=== PATIENT | male | born 1955 | race African-American/Black ===

== ENCOUNTER 2019-06-16 17:56 | Emergency (ER) | payer OTHER ==
[~2019-06-16] VITALS: Ht 188 cm; Wt 124.7 kg
--- NOTE | ~2019-06-16 | EKG ---
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
[~2019-06-16 17:56] MED LIST: ASA81BEC; CIPROFLOXACIN500 M1 PO; FLAGYL500 M1 PO; PERCOCET; VALIUM5 MG PO; ZOFRAN ODT4 MG PO
[2019-06-16] MEDS ORDERED: PANTOPRAZOLE SO40 M1 PO (18:05)
[2019-06-16 19:08] LABS: ABSOLUTE NEUTROPHILS 3.3 thou/uL (1.4-8.2); EOSINOPHILS 2.6 % (0.0-3.0); HEMATOCRIT 41.7 % (42.0-52.0); HEMOGLOBIN 13.5 gm/dL (14.0-18.0); LYMPHOCYTES 43.8 % (24.0-44.0); MCH 28.6 pg (26.0-34.0); MCHC 32.5 g/dL (28.0-37.0); MCV 87.8 fL (80.0-100.0); MONOCYTES 7.3 % (1.0-8.0); PLATELET COUNT 235 thou/uL (150-400); POLYS 45.3 % (36.0-66.0); RBC 4.74 mil/uL (4.50-6.00); RDW 14.9 % (10.5-14.5); WBC 7.3 thou/uL (4.0-11.0)
[2019-06-16 19:12] LABS: ANION GAP 8 mmol/L (7-16); BUN 9 mg/dL (7-18); CHLORIDE 103 mmol/L (98-107); CO2 30 mmol/L (21-32); CREATININE 0.8 mg/dL (0.7-1.3); GLUCOSE 91 mg/dL (74-106); POTASSIUM 3.9 mmol/L (3.5-5.1); SODIUM 141 mmol/L (136-145)
[2019-06-16 19:23] LABS: ALBUMIN 3.7 g/dL (3.4-5.0); SGOT 15 U/L (15-37); SGPT 23 U/L (30-65); TOTAL BILIRUBIN 0.4 mg/dL (<0.1-1.0); TOTAL PROTEIN 7.8 g/dL (6.4-8.2); TROPONIN-I <0.06 ng/mL (<0.06)
[2019-06-16] MEDS ORDERED: MOBIC7.5 MG PO (21:36)
[2019-06-16 21:53] VITALS: BP 126/89
== END 2019-06-16 21:54 | disposition home or self-care (01) ==
LOC: ER 17:56
PROVIDERS: Emergency Medicine
DX: M79.604 Pain in right leg (principal); M79.605 Pain in left leg; R53.1 Weakness; R60.0 Localized edema; E11.9 Type 2 diabetes mellitus without complications; Z85.46 Personal history of malignant neoplasm of prostate

== ENCOUNTER → 2019-10-09 | Outpatient (CLI) | payer OTHER ==
[~2019-10-09] VITALS: Ht 188 cm; Wt 127.2 kg
[~2019-10-09] MED LIST changes: -ASA81BEC; +ASPIR 8181 MG PO; +CARVEDILOL6.25 M1 PO; +COZAAR 50 MG TA50 M1 PO; +LIPITOR 40 MG T40 M1 PO; +MEDROLDOSEPACK PO; +MOBIC7.5 MG PO; +PROTONIX40 M1 PO; +ROXICODONE30 MG PO; +VITAMIN D
--- NOTE | ~2019-10-09 | HPC ---
[facility] [place] [address] PAIN MANAGEMENT CONSULTATION Name: AMALIA HACKETT Room #: REG LALO Arsalan#: [id number] Admission: 10/09/19 Attend Phys: Beau Avendaño MD Discharge: Date of : 59 Report #: [id number] THIS REPORT FOR: cc: Andrés Arredondo MD, John R. MD Morgan, Richard L. MD ~ CC: Sonya Avendaño DATE OF SERVICE: 10/09/2019 CHIEF COMPLAINT: Severe pain, right leg weakness. I am seeing the patient today at the request of Sonya Aguilar for possible epidural steroid injection. Although he has chronic neck pain and cervicalgia with radiculopathy, his primary complaint throughout his visit today was pain in his legs. It is difficult to get a clear history. He seems heavily medicated today and this is confirmed by his prescription drug monitoring program information. He is on high-dose oxycodone therapy. He complains that standing on hard surfaces or just walking causes a constant, burning, shooting pain, which he scores at a 10/10 in intensity. Pain drawing shows pain that radiates through his right leg all the way to the foot consistent with an L4 distribution. This also is consistent with his physical exam findings, see below. He has not had physical therapy. Only pain medication is the high-dose oxycodone. MEDICATIONS: Carvedilol, losartan, pantoprazole, atorvastatin, vitamin D, aspirin, and oxycodone 30 mg. He is prescribed 180 tablets per month from Dr[address] Arredondo. ALLERGIES: None. PAST MEDICAL HISTORY: Positive for hepatitis C, which has been treated and cured. History of prostate cancer, also treated in the distant past. He has an obvious cardiac history, although he did not discuss current symptoms with us today. He has in the past been on Brilinta, but repeatedly denied taking blood thinning medications. We noted it on Sonya Aguilar's note from 08/26/2019. Also noted was type 2 diabetes, which was not noted on his intake form today in our clinic. Impact pain score 66/70. He shows significant interference with almost all [facility] [address] [place] [address] PAIN MANAGEMENT CONSULTATION Name: AMALIA HACKETT Room #: REG [facility].#: [id number] Admission: 10/09/19 Attend Phys: Beau Avendaño MD Discharge: Date of : 59 Report #: [id number] daily activities with his current pain. PHYSICAL EXAMINATION: GENERAL: He is a soft spoken, very large gentleman, 6 feet 2 inches, 280 pounds, BMI of 36. VITAL SIGNS: Blood pressure 134/96, pulse is 81, respirations 20, O2 sat 98. He reports his pain intensity is 10/10. He is wearing a mask due to COVID restrictions. NECK: Range of motion is limited due to pain. He has radiating pain into his shoulders bilaterally, worse right than left. CHEST: Clear. CARDIAC: Rhythm is regular. MUSCULOSKELETAL: Reveals decreased range of motion and back extension and flexion. Tenderness across the lumbosacral segment, which is mild. In the seated and supine position, there is mild to moderate straight leg raising pain that follows an L4 distribution through the anterolateral portion of the right leg. Slight numbness. There is some weakness in leg extension and hip flexion on the right greater than the left. There is a very objective difference between the right knee jerk reflex and the left. Right knee jerk reflexes is trace, left is 2+. Ankle reflexes are trace bilaterally. MRI: None. IMPRESSION: His findings are consistent with a right L4 radiculopathy. An epidural injection may be of benefit. Preauthorization is required by his insurance. I have scheduled him back in the clinic at our earliest appointment, which will be Sunday for epidural steroid injection. I repeatedly reviewed with him the importance of being off of Plavix for injection. I am reluctant to prescribe any centrally acting medications as a supplement to his current medicine regimen. He appears overmedicated today, slow in answering and slurring of speech. I will call in a Renthackr Dosepak to see if that will provide some relief over the weekend prior to his injection. By: [id number] Beau Avendaño MD /nt
[2019-10-09 14:06] VITALS: BP 134/96
--- NOTE | 2019-10-09 14:31 | NUR ---
Pain Clinic Assessment: 1. History of Osteoarthritis: History of Rheumatoid Arthritis: 2. Height: 6 ft. 2 in. 188.0 cm. Weight: 280.4 lb. oz. 127.189 kg. Patient's BMI: 36.0 3. Vital Signs: BP: 134/96 Pulse: 81 Resp: 20 Temp: 02 Sat: 99 ECG Mon: 4. Pain Intensity: 8 5. Fall Risk: Dizziness: N Needs help standing or walking: N Fallen in the last 3 months: Y Fall risk comments: 6. Patient on Blood Thinner: None 7. History of Hypertension: Y 8. Opioid Therapy greater than 6 weeks: Y Opiate Contract Signed: 9. Risk Assessment Tool Provided: 10. Functional Assessment Tool: 11. Recreational Drug Use: Current within past 3 mos Drug Type: MARIJUANA Tobacco Use: Former Smoker Tobacco Type: Amount or Packs/day: How Many Years: Alcohol Use: No Frequency: Quant:
== END ==
LOC: PAIN 06:53
DX: R53.1 Weakness (principal); M79.604 Pain in right leg; B19.20 Unspecified viral hepatitis C without hepatic coma; Z79.899 Other long term (current) drug therapy; Z85.46 Personal history of malignant neoplasm of prostate

== ENCOUNTER → 2020-01-01 | Outpatient (CLI) | payer OTHER ==
[~2020-01-01] VITALS: Ht 188 cm; Wt 131.1 kg
--- NOTE | ~2020-01-01 | HPC ---
[facility] [place] [address] PAIN MANAGEMENT CONSULTATION Name: AMALIA HACKETT Room #: REG LALO Arsalan#: [id number] Admission: 01/01/20 Attend Phys: Beau Avendaño MD Discharge: Date of : 59 Report #: [id number] THIS REPORT FOR: cc: Andrés Arredondo MD, John R. MD Morgan,Beau Vincent MD ~ CC: Andrés Avendaño DATE OF SERVICE: 01/01/2020 Followup visit for chronic pain. The patient complains of severe low back pain radiating into both legs today. I saw the patient on 10/09/2019. At that time, he was heavily medicated. Please note that dictation. I placed him on a Medrol Dosepak and scheduled him to return, possibly for an epidural injection. He returned today 3 months after his initial visit. He is now off of Plavix. He complains of pain 6-8/10 that is in his low back, radiates into the lateral thigh bilaterally. It is worse in his left today, radiating down into the foot. He complains that his legs always feel heavy. He has difficulty with walking and standing. When he is sedentary, he is improved. We talked about the importance of remaining active. He continues on his medication but per report, is taking a lower dose. Prescription drug monitoring program does not indicate that he had a prescription filled on 12/03/2019 for 180, oxycodone 30 mg tablets. He says he has been on these medications for 10 years. He is able to tolerate them by his own report but as noted last visit and as well today, he seems forgetful and at times, a bit confused. PQRS: Negative for osteoarthritis. He is obese with a BMI of 37.1. Blood pressure is 148/91, heart rate 59, respirations 18, O2 sat 97, pain intensity 6/10. He denies falls. Denies blood thinner. Dr. Arredondo provides medication for hypertension. All medications were reviewed and reconciled and includes pantoprazole, carvedilol, losartan, atorvastatin, vitamin D, aspirin, and oxycodone 30 mg up to 6 times daily. He has not signed an opioid agreement with us and we do not prescribe for him. He has completed an opioid risk tool and his score is 0 on the subjective tool. Functional assessment score also scored by the patient is 34/70 suggesting moderate impact of pain on daily activities. He continues to smoke marijuana and tobacco. Counseled about both, particularly in light of his use of centrally acting medication and a strong opioid such as oxycodone 30. He denies use of alcohol. [address] [address] PAIN MANAGEMENT CONSULTATION Name: AMALIA HACKETT FLORENCIO Room #: REG CL Arsalan#: [id number] Admission: 01/01/20 Attend Phys: Beau Avendaño MD Discharge: Date of : 59 Report #: [id number] IMPRESSION: Low back pain with radicular symptoms, worse on the left. RECOMMENDATION: We will try an epidural injection today. My hope is that we provide enough relief that he can taper some of his opioid medications. We discussed how this might occur. He is anxious to proceed. DESCRIPTION OF PROCEDURE: The patient was taken to fluoroscopic suite, placed prone, skin prepped with ChloraPrep. Skin anesthetized over the L4-L5 interspace. Because of his size of 4.5-inch, a 20-gauge Tuohy epidural needle was utilized. It was advanced in the epidural space with loss of resistance technique. On the first attempt, there was no blood or CSF aspirated. A 1 mL of Omnipaque was injected. Good spread of dye observed into the epidural space, was followed then by 3 mL of 0.5% lidocaine mixed with 80 mg of triamcinolone. He tolerated the procedure well. There were no complications. He was taken to recovery room for observation and discharged. Followup visit is planned as needed for further injections. I did not schedule a second followup injection at this time. By: 1150 1250 Beau Avendaño MD /nt
[2020-01-01 09:00] VITALS: BP 148/91
--- NOTE | 2020-01-01 09:12 | NUR ---
Pain Clinic Assessment: 1. History of Osteoarthritis: NO NO History of Rheumatoid Arthritis: NO 2. Height: 6 ft. 2 in. 188.0 cm. Weight: 289.0 lb. oz. 131.090 kg. Patient's BMI: 37.1 3. Vital Signs: BP: 148/91 Pulse: 59 Resp: 18 Temp: 02 Sat: 97 ECG Mon: 4. Pain Intensity: 6 5. Fall Risk: Dizziness: N Needs help standing or walking: N Fallen in the last 3 months: N Fall risk comments: 6. Patient on Blood Thinner: None 7. History of Hypertension: Y 8. Opioid Therapy greater than 6 weeks: Y Opiate Contract Signed: 9. Risk Assessment Tool Provided: LOW RISK-0 10. Functional Assessment Tool: 34/70 11. Recreational Drug Use: Current within past 3 mos Drug Type: MARAJUANA Tobacco Use: Former Smoker Tobacco Type: Cigarettes Amount or Packs/day: 1/2 PPD How Many Years: 2 Alcohol Use: No Frequency: Quant:
== END | disposition home or self-care (01) ==
LOC: PAIN 06:48
PROVIDERS: ATTEND Anesthesiology Pain Medicine
DX: M54.16 Radiculopathy, lumbar region (principal); G89.29 Other chronic pain; I10 Essential (primary) hypertension; F17.210 Nicotine dependence, cigarettes, uncomplicated; Z98.890 Other specified postprocedural states; Z79.899 Other long term (current) drug therapy